=== PATIENT | male | born 1945 | race Caucasian/White ===

== ENCOUNTER → 2017-02-20 | Outpatient (CLI) | payer BC ==
[~2017-02-20] MED LIST: ASPIRIN PO; CHOL2000 PO; CLON0.5T3 PO; ESCI10TA17 PO; FLUT0.15; IBUP-1050 PO; MULT-892 PO; MULTTAB27 PO; PANC6000 PO; POTA10CA28 PO; PRLSR20 PO; SIME80CH PO; SUPER B COMPLEX PO; TRAM37.52 PO; TRIA0.5O TOP; imodium PO
[2017-02-20 11:11] LABS: BASO % 0.2 %; BASO ABS # 0.01 K/uL (0-0.2); COMPLETE YES; EOS % 1.6 %; HEMATOCRIT 36.6 % (42-52); IG% 0.2 %; LYMPH % 25.1 %; LYMPH ABS # 1.38 K/uL (1.2-3.4); MEAN CELL VOLUME 83.4 fL (80-100); MEAN CORPUSCULAR HEMOGLOBIN 28.5 pg (25-34); MEAN CORPUSCULAR HGB CONC 34.2 g/dl (32-36); MONO % 8.2 %; NEUT % 64.7 %; PLATELET COUNT 190 K/uL (130-400); RED BLOOD COUNT 4.39 M/uL (4.7-6.1); WHITE BLOOD COUNT 5.49 K/uL (4.8-10.8)
[2017-02-20 11:32] LABS: ESTIMATED AVERAGE GLUCOSE 114 mg/dl; HA1C FLAG Normal (Normal)
[2017-02-20 11:52] LABS: ALT/SGPT 79 U/L (12-78); AST/SGOT 54 U/L (15-37); BLOOD UREA NITROGEN 16 mg/dl (7-18); BUN/CREATININE RATIO 20.2 (10-20); CALCIUM 9.2 mg/dl (8.5-10.1); CARBON DIOXIDE 29 mmol/L (21-32); CHLORIDE 107 mmol/L (98-107); CREATININE 0.79 mg/dl (0.60-1.40); GLUCOSE 104 mg/dl (70-99); POTASSIUM 4.2 mmol/L (3.5-5.1); SODIUM 142 mmol/L (136-145)
[2017-02-20 11:55] LABS: ALB/GLOB RATIO 1.1 (0.9-2); ALKALINE PHOSPHATASE 305 U/L (45-117)
[2017-02-20 12:04] LABS: CHOLESTEROL/HDL RATIO 3.6; PHOSPHORUS 3.4 mg/dl (2.5-4.9); THYROID STIMULATING HORMONE 3.67 uIu/ml (0.300-4.500); URIC ACID 5.7 mg/dl (2.6-7.2)
[2017-02-23 11:43] LABS: C-REACTIVE PROT HIGHSEN 1.9 MG/L
--- NOTE | 2017-02-24 11:32 | CODING QUERY MEDICAL NECESSITY ---
SUPPORTING DIAGNOSIS NEEDED A supporting diagnosis is required for the test/procedure performed on this patient in order for us to be reimbursed by the patient's insurance. Please provide a supporting diagnosis for the following test/procedure listed below next to the test name along with your signature. *If there is no additional diagnosis for this patient that would support the following test/procedure please document that below next to the test/procedure. Test(s)/Procedure(s) that require a supporting diagnosis: * VITAMIN D 25-HYDROXY DIAGNOSIS: * VITAMIN B-12 LEVEL DIAGNOSIS: * C-REACTIVE PROTEIN DIAGNOSIS: * DOS: 02/20/17 Provider Signature: Date: Thank you Sara Scherer Health Information Management Once completed, please kindly fax back to [phone] For questions please call [phone]
== END | disposition home or self-care (01) ==
LOC: C.LABBC 08:24
PROVIDERS: ATTEND Internal Medicine Hematology & Oncology
DX: C25.2 Malignant neoplasm of tail of pancreas (principal); R73.09 Other abnormal glucose

== ENCOUNTER → 2017-03-05 | Outpatient (CLI) | payer BC ==
[~2017-03-05] MED LIST changes: +OPTIRAY 320 IV PRN
--- NOTE | 2017-03-05 16:08 | DIAGNOSTIC IMAGING REPORT ---
CHEST CT WITH CONTRAST CT DOSE: HISTORY: PANCREATIC CA TECHNIQUE: Multiaxial CT images of the chest were performed following the intravenous administration of contrast. COMPARISON: 07/14/2016 FINDINGS: Minimal scattered micronodularity is stable. No evidence for new, interval or progressive process. Hilar and mediastinal regions show no significant adenopathy. Lungs are considered clear. No focal infiltrate. Postoperative changes upper abdomen within the limitations of the study appears stable. IMPRESSION: Stable CT of the chest. No change from the prior exam. No acute process. Electronically signed by: Beto Haji M.D. 03/05/2017 4:05 PM Dictated Date/Time: 03/05/2017 4:02 PM
--- NOTE | 2017-03-05 17:07 | DIAGNOSTIC IMAGING REPORT ---
CT OF THE ABDOMEN AND PELVIS WITH CONTRAST CLINICAL HISTORY: Pancreatic cancer. COMPARISON STUDY: CT of the abdomen and pelvis July 14, 2016 and PET/CT July 23, 2016. TECHNIQUE: Following IV administration of 92 mL of Optiray-320, axial images of the abdomen and pelvis were obtained from the lung bases to the proximal femurs. Images were reviewed in the axial, sagittal, and coronal planes. IV contrast was administered without complication. Oral contrast was administered. CT DOSE: 596.85 mGy.cm FINDINGS: The chest will be reported separately. A 5 mm subpleural nodular density within the medial basilar segment of the left lower lobe is noted image 78 of 466. This is new since prior exam but likely reflects atelectasis. There is pneumobilia. There are stable postsurgical findings consistent with a Whipple procedure. A biliary stent is in place. No hepatic lesions are present. There are several splenules. The adrenal glands and right kidney are normal. Left renal calculi measure up to 5 mm. Mildly enlarged peripancreatic lymph nodes are unchanged. A 1.9 x 1.4 cm peripancreatic node shown image 173 is unchanged. There is no ascites. There is no evidence for bowel obstruction. No suspicious osseous lesions are present. The subcutaneous nodule of the right flank shown on prior exam is no longer visualized. The main, left and right portal veins are patent. IMPRESSION: 1. No convincing evidence of recurrent malignancy within the abdomen or pelvis. 2. No significant change in mildly enlarged peripancreatic lymph nodes since prior exam. These nodes were not FDG avid on prior PET/CT and are likely but should be assessed on subsequent exam. 3. 5 mm subpleural nodular density within the left lower lobe which likely reflects atelectasis but can be assessed on subsequent exam. Electronically signed by: Jaxon Arguello M.D. 03/05/2017 5:05 PM Dictated Date/Time: 03/05/2017 4:08 PM
== END | disposition home or self-care (01) ==
LOC: C.CTS 15:10
PROVIDERS: ATTEND Internal Medicine Hematology & Oncology
DX: C25.2 Malignant neoplasm of tail of pancreas (principal)

== ENCOUNTER → 2017-05-22 | Outpatient (CLI) | payer BC ==
[~2017-05-22] MED LIST changes: -OPTIRAY 320 IV PRN
[2017-05-25 11:21] LABS: 18KDIGG BAND NONREACTIVE (NONREACTIVE); 23KDIGG BAND NONREACTIVE (NONREACTIVE); 23KDIGM BAND NONREACTIVE (NONREACTIVE); 28KDIGG BAND NONREACTIVE (NONREACTIVE); 30KDIGG BAND NONREACTIVE (NONREACTIVE); 39KDIGG BAND NONREACTIVE (NONREACTIVE); 39KDIGM BAND NONREACTIVE (NONREACTIVE); 41KDIGG BAND REACTIVE (NONREACTIVE); 41KDIGM BAND NONREACTIVE (NONREACTIVE); 45KDIGG BAND REACTIVE (NONREACTIVE); 58KDIGG BAND NONREACTIVE (NONREACTIVE); 66KDIGG BAND NONREACTIVE (NONREACTIVE); 93KDIGG BAND NONREACTIVE (NONREACTIVE)
--- NOTE | 2017-06-10 12:46 | CODING QUERY MEDICAL NECESSITY ---
SUPPORTING DIAGNOSIS NEEDED A supporting diagnosis is required for the test/procedure performed on this patient in order for us to be reimbursed by the patient's insurance. Please provide a supporting diagnosis for the following test/procedure listed below next to the test name along with your signature. *If there is no additional diagnosis for this patient that would support the following test/procedure please document that below next to the test/procedure. Test(s)/Procedure(s) that require a supporting diagnosis: * VITAMIN D, 25-HYDROXY DIAGNOSIS: Provider Signature: Date: Thank you Marci Meza [facility] Information Management Once completed, please kindly fax back to [phone] For questions please call [phone]
== END | disposition home or self-care (01) ==
LOC: C.LAB 11:41
PROVIDERS: ATTEND Family Medicine
DX: B97.89 Other viral agents as the cause of diseases classified elsewhere (principal); C25.2 Malignant neoplasm of tail of pancreas; E55.9 Vitamin D deficiency, unspecified

== ENCOUNTER → 2017-06-15 | Outpatient (CLI) | payer BC ==
--- NOTE | 2017-06-15 12:01 | DIAGNOSTIC IMAGING REPORT ---
PET/CT SKULL-THIGH HISTORY: Pancreatic carcinoma PANCREATIC CANER TECHNIQUE: PET/CT was performed from the base of the skull through the pelvis following the intravenous administration of 13.9 mCi of F18-FDG. Non-contrast CT imaging was performed over the same range without breath-hold for attenuation correction of PET images and anatomic correlation, but not for primary interpretation as it is not of standard diagnostic quality. CT DOSE: 342.67 mGycm COMPARISON: 07/23/2016 FINDINGS: HEAD AND NECK: There is no FDG-avid disease or significant lymphadenopathy in the imaged portions of the head and the neck. CHEST: There is no FDG-avid disease in the chest. There is no axillary, mediastinal, or hilar lymphadenopathy. There is no pleural or pericardial effusion. There is no air-space disease or suspicious lung nodule. ABDOMEN/PELVIS: Postoperative changes consistent with prior Whipple procedure is again noted. These changes have remains stable. There are no new or interval findings within this operative field. Nephrocalcinosis unchanged. Interval resolution of the subcutaneous nodule in the right flank. The abdomen is negative for pathologic FDG activity MUSCULOSKELETAL: There is no FDG-avid or destructive bone lesion. IMPRESSION: There is no definite evidence of recurrent FDG-avid disease. Stable postoperative change consistent with a prior Whipple procedure. No abnormal FDG activity is appreciated. Interval resolution of the 2 cm subcutaneous nodule previously described within the right flank. The above report was generated using voice recognition software. It may contain grammatical, syntax or spelling errors. Electronically signed by: Beto Haji M.D. 06/15/2017 12:00 PM Dictated Date/Time: 06/15/2017 11:53 AM
== END | disposition home or self-care (01) ==
LOC: C.PET 08:57
PROVIDERS: ATTEND Internal Medicine Hematology & Oncology
DX: C25.9 Malignant neoplasm of pancreas, unspecified (principal)

== ENCOUNTER → 2017-06-25 | Outpatient (CLI) | payer BC ==
[2017-06-25 17:04] LABS: BASO % 0.1 %; BASO ABS # 0.01 K/uL (0-0.2); COMPLETE YES; EOS % 0.7 %; HEMATOCRIT 38.6 % (42-52); IG% 0.1 %; LYMPH % 15.7 %; LYMPH ABS # 1.13 K/uL (1.2-3.4); MEAN CELL VOLUME 85.2 fL (80-100); MEAN CORPUSCULAR HEMOGLOBIN 27.6 pg (25-34); MEAN CORPUSCULAR HGB CONC 32.4 g/dl (32-36); MEAN PLATELET VOLUME 9.4 fL (7.4-10.4); MONO % 9.8 %; NEUT % 73.6 %; PLATELET COUNT 194 K/uL (130-400); RED BLOOD COUNT 4.53 M/uL (4.7-6.1); WHITE BLOOD COUNT 7.21 K/uL (4.8-10.8)
[2017-06-25 17:26] LABS: ALT/SGPT 41 U/L (12-78); AST/SGOT 20 U/L (15-37); BLOOD UREA NITROGEN 13 mg/dl (7-18); CALCIUM 9.2 mg/dl (8.5-10.1); CARBON DIOXIDE 28 mmol/L (21-32); CHLORIDE 103 mmol/L (98-107); CREATININE 0.98 mg/dl (0.60-1.40); GLUCOSE 154 mg/dl (70-99); POTASSIUM 3.9 mmol/L (3.5-5.1); SODIUM 137 mmol/L (136-145)
[2017-06-25 17:28] LABS: ALB/GLOB RATIO 1.2 (0.9-2); ALKALINE PHOSPHATASE 182 U/L (45-117)
== END | disposition home or self-care (01) ==
LOC: C.LABBC 13:46
PROVIDERS: ATTEND Internal Medicine Hematology & Oncology
DX: C25.2 Malignant neoplasm of tail of pancreas (principal)

== ENCOUNTER → 2017-07-17 | Outpatient (CLI) | payer BC ==
[2017-07-17 10:54] LABS: BASO % 0.2 %; BASO ABS # 0.01 K/uL (0-0.2); COMPLETE YES; EOS % 1.8 %; HEMATOCRIT 37.9 % (42-52); IG% 0.2 %; LYMPH % 21.2 %; LYMPH ABS # 1.38 K/uL (1.2-3.4); MEAN CELL VOLUME 84.4 fL (80-100); MEAN CORPUSCULAR HEMOGLOBIN 27.6 pg (25-34); MEAN CORPUSCULAR HGB CONC 32.7 g/dl (32-36); MEAN PLATELET VOLUME 9.3 fL (7.4-10.4); MONO % 10.9 %; NEUT % 65.7 %; PLATELET COUNT 183 K/uL (130-400); RED BLOOD COUNT 4.49 M/uL (4.7-6.1)
[2017-07-17 11:39] LABS: ALT/SGPT 50 U/L (12-78); BLOOD UREA NITROGEN 18 mg/dl (7-18); BUN/CREATININE RATIO 22.4 (10-20); CALCIUM 9.2 mg/dl (8.5-10.1); CARBON DIOXIDE 28 mmol/L (21-32); CHLORIDE 105 mmol/L (98-107); CHOLESTEROL 155 mg/dl (0-200); CREATININE 0.79 mg/dl (0.60-1.40); GLUCOSE 111 mg/dl (70-99); POTASSIUM 4.2 mmol/L (3.5-5.1); SODIUM 138 mmol/L (136-145); TRIGLYCERIDES 82 mg/dl (0-150); URIC ACID 5.4 mg/dl (2.6-7.2); VERY LOW DENSITY LIPOPROT CALC 16 mg/dl
[2017-07-17 11:48] LABS: ALB/GLOB RATIO 1.1 (0.9-2); ALKALINE PHOSPHATASE 213 U/L (45-117); AST/SGOT 22 U/L (15-37); HDL CHOLESTEROL 52 mg/dl; LDL CHOLESTEROL CALCULATED 87 mg/dl; TOTAL IRON BINDING CAPACITY 371 mcg/dl (250-450)
[2017-07-17 11:58] LABS: ESTIMATED AVERAGE GLUCOSE 114 mg/dl; HA1C FLAG Normal (Normal)
[2017-07-23 09:51] LABS: 18KDIGG BAND NONREACTIVE (NONREACTIVE); 23KDIGG BAND NONREACTIVE (NONREACTIVE); 23KDIGM BAND NONREACTIVE (NONREACTIVE); 28KDIGG BAND NONREACTIVE (NONREACTIVE); 30KDIGG BAND NONREACTIVE (NONREACTIVE); 39KDIGG BAND NONREACTIVE (NONREACTIVE); 39KDIGM BAND NONREACTIVE (NONREACTIVE); 41KDIGG BAND REACTIVE (NONREACTIVE); 41KDIGM BAND NONREACTIVE (NONREACTIVE); 45KDIGG BAND REACTIVE (NONREACTIVE); 58KDIGG BAND REACTIVE (NONREACTIVE); 66KDIGG BAND NONREACTIVE (NONREACTIVE); 93KDIGG BAND NONREACTIVE (NONREACTIVE)
== END | disposition home or self-care (01) ==
LOC: C.LABBC 08:55
PROVIDERS: ATTEND Family Medicine
DX: R73.09 Other abnormal glucose (principal); E55.9 Vitamin D deficiency, unspecified; D51.9 Vitamin B12 deficiency anemia, unspecified; E78.9 Disorder of lipoprotein metabolism, unspecified; R53.83 Other fatigue

== ENCOUNTER → 2017-09-17 | Outpatient (CLI) | payer BC ==
[~2017-09-17] MED LIST changes: +OPTIRAY 320 IV PRN
--- NOTE | 2017-09-17 16:27 | DIAGNOSTIC IMAGING REPORT ---
CT OF THE CHEST WITH IV CONTRAST CLINICAL HISTORY: PANCREATIC CA COMPARISON STUDY: 03/05/2017 TECHNIQUE: Following the IV administration of 114 mL of Optiray-320, CT of the thorax was performed from the thoracic inlet to the lung bases. Images are reviewed in the axial, sagittal, and coronal planes. IV contrast was administered without complication. A dose lowering technique was utilized adhering to the principles of ALARA. CT DOSE: FINDINGS: Thyroid: Imaged portions of the thyroid gland are normal in appearance. Thoracic aorta: The ascending thoracic aorta measures 38 mm. Pulmonary vasculature: The pulmonary trunk is normal in caliber. There are no central filling defects identified to suggest pulmonary embolus. Note that this examination was not protocoled for the evaluation of pulmonary emboli. HEART: There are coronary artery calcifications. There is no significant pericardial fluid. There is a right-sided A-Port catheter. Lungs and pleural spaces: There are no pleural effusions. There is no focal pulmonary consolidation. There is mild dependent atelectasis. There is a stable 3 mm perifissural left upper lobe pulmonary nodule. There is a stable perifissural 2.5 mm left upper lobe pulmonary nodule. There is a new 12 mm pulmonary nodule the left medial lung base as visualized in image #245/326. There is a 6 mm pleural-based left lower lobe point nodule as visualized on image #252/326. This appears 1 mm larger. Mediastinum: There is no mediastinal lymphadenopathy. Sharon: Clear. Axilla: Clear. Upper abdomen: The gallbladder surgically absent. There is pneumobilia. Skeletal structures: There are no lytic or blastic osseous lesions. IMPRESSION: 1. New indeterminate 12 mm left lower lobe pulmonary nodule. 2. 1 mm increase in the size of an indeterminate 6 mm left lower lobe pulmonary nodule. Electronically signed by: Selvin Nj M.D. 09/17/2017 4:25 PM Dictated Date/Time: 09/17/2017 4:15 PM
--- NOTE | 2017-09-17 16:58 | DIAGNOSTIC IMAGING REPORT ---
ABD/PELVIS IV AND ORAL CONT HISTORY: 72 years-old Male follow-up study in a patient with pancreatic carcinoma. Prior Whipple procedure. COMPARISON: CT 03/05/2017, PET CT 06/15/2017 TECHNIQUE: Multiple axial CT images of the abdomen and pelvis were obtained following the intravenous administration of 114 mL Optiray 320. Oral contrast also administered. A dose lowering technique was used consistent with the principals of HECTOR. FINDINGS: Solid pleural-based pulmonary nodule of the basal left lower lobe measures up to 8 mm on image 34 of series 7. 12 mm pulmonary nodule on image 25 series 7 of the left lower lobe. 6 mm left lower lobe pulmonary nodule seen on image 5 of series 7. No pneumoperitoneum identified. Imaged inferior cardiac chambers are mildly enlarged with trace pericardial effusion. Coronary arterial calcifications are noted. Moderate intrahepatic biliary ductal dilation with pneumobilia of the left hepatic lobe appears unchanged. No hepatic mass lesions identified. Postsurgical changes from prior Whipple procedure are noted with biliary stent in place. Decreased size of peripancreatic adenopathy with 1.8 x 0.7 cm lymph node on image 127 series 7 previously measuring 2.0 x 1.1 cm. 1.7 x 1.3 cm peripancreatic lymph node on image 143 series 7 recent measured 2.0 x 1.4 cm on study 03/05/2017. These also appear slightly decreased from prior PET/CT. No new adenopathy identified. Moderate atherosclerosis of the abdominal aorta. Spleen, remaining pancreatic parenchyma and adrenal glands are unremarkable. 7 mm nonobstructing calculus of the interpolar left kidney is noted with 7 mm calculus of the inferior pole left kidney also present. 2 mm calculus of the superior pole left kidney. No ureteral calculi or hydronephrosis. Bladder is partially collapsed. Prostate mildly enlarged. No bowel obstruction or pneumatosis. Large bowel is within normal limits. No ascites identified. Soft tissues are unremarkable. Bones are mildly demineralized. No suspicious lytic or blastic bony lesions identified. Multilevel degenerative changes of the spine. IMPRESSION: 1. No evidence of recurrent malignancy within the abdomen or pelvis. 2. Mildly decreased size of peripancreatic lymph nodes as above. 3. Suspicious appearing pulmonary nodules of the left lower lobe measuring up to [address] chest of same day for further details. 4. Additional findings as above. The above report was generated using voice recognition software. It may contain grammatical, syntax or spelling errors. Electronically signed by: Jimmy Yadav M.D. 09/17/2017 4:57 PM Dictated Date/Time: 09/17/2017 4:47 PM
== END | disposition home or self-care (01) ==
LOC: C.CTS 15:10
PROVIDERS: ATTEND Internal Medicine Hematology & Oncology
DX: C25.2 Malignant neoplasm of tail of pancreas (principal); R91.1 Solitary pulmonary nodule; R91.8 Other nonspecific abnormal finding of lung field

== ENCOUNTER → 2017-12-18 | Outpatient (CLI) | payer BC ==
--- NOTE | 2017-12-18 10:31 | DIAGNOSTIC IMAGING REPORT ---
ABD/PELVIS IV AND ORAL CONT CT DOSE: HISTORY: Pancreatic carcinoma PANCREATIC CA TECHNIQUE: Multiaxial CT images of the abdomen and pelvis were performed following the use of intravenous and oral contrast. A dose lowering technique was utilized adhering to the principles of ALARA. COMPARISON STUDY: 09/17/2017 FINDINGS: Parenchymal nodules medial aspect left base somewhat increased in dimension. The posterior pleural-based nodule has increased to 11 mm from 8 mm in terms of maximum dimension. The anterior pleural-based nodule has increased to 15 mm from 11 mm. Density characteristics of the liver and spleen remain unremarkable. Operative changes of prior Whipple procedure and stent placement are similar. An anterior. Note is stable at 1.4 cm. Several small perirectal nodes present described are stable. At this time there does not appear to be a significant degree of peripancreatic adenopathy. Kidneys enhance uniformly. There are several nonobstructing left renal calcifications considered unchanged. Bowel pattern is nonobstructive. pelvis shows bladder is midline. There is no significant pelvic or inguinal adenopathy. IMPRESSION: 1. Slightly progressive left basilar pulmonary nodularity compared to the prior study. 2. The 2 previously described nodules are mildly increased in size. 3. No new or additional basilar parenchymal nodules. 4. Stable to slightly improved evaluation of the abdomen and pelvis. 5. Stable to slightly improved upper abdominal and pelvic adenopathy with no significant abnormality of the pelvic region or inguinal region structures. The above report was generated using voice recognition software. It may contain grammatical, syntax or spelling errors. Electronically signed by: Beto Haji M.D. 12/18/2017 10:29 AM Dictated Date/Time: 12/18/2017 10:21 AM
--- NOTE | 2017-12-18 10:34 | DIAGNOSTIC IMAGING REPORT ---
CT OF THE CHEST WITH IV CONTRAST CLINICAL HISTORY: Pancreatic cancer. COMPARISON STUDY: Chest CT September 17, 2017. TECHNIQUE: Following IV administration of 120 mL of Optiray-320, helical axial images of the chest were obtained. Sagittal and coronal reconstructions were viewed as well as maximal intensity projections on an independent 3-D workstation. A dose lowering technique was utilized adhering to the principles of ALARA. CT DOSE: 645.90 mGy.cm FINDINGS: No enlarged axillary, mediastinal or hilar lymph nodes are present. Mild dilatation of the ascending aorta, measuring 4 cm is unchanged. There is no evidence for thoracic aortic dissection. There is extensive coronary artery calcification. The size of the heart is normal. There is no pericardial effusion. Central airways are patent. A 1.6 cm left lower lobe nodule shown image 237 of 326 has mildly increased in size since CT of September 17, 2017 when measured 1.2 cm. An adjacent 1.1 cm left lower lobe nodule previously measured 0.6 cm. A new 1 cm left lower lobe nodule is noted on image 185. His could reflect a pulmonary nodule or abnormal bronchial lymph node. Additional tiny subpleural nodules are unchanged and likely benign. The central airways are patent. There is no consolidation to suggest pneumonia. There is no pneumothorax or pleural effusion. No suspicious osseous lesions are present. The abdomen and pelvis will be reported separately. Pneumobilia is again noted. IMPRESSION: Mild increase in size of two irregular left lower lobe pulmonary nodules since CT of September 17, 2017 with interval development of an additional 1 cm left lower lobe nodule. The findings are highly suggestive of metastatic disease. Electronically signed by: Jaxon Arguello M.D. 12/18/2017 10:32 AM Dictated Date/Time: 12/18/2017 10:21 AM
== END | disposition home or self-care (01) ==
LOC: C.CTS 09:36
PROVIDERS: ATTEND Internal Medicine Hematology & Oncology
DX: C25.2 Malignant neoplasm of tail of pancreas (principal)

== ENCOUNTER → 2018-01-06 | Outpatient (CLI) | payer BC ==
[~2018-01-06] MED LIST changes: +ACET1CAP16 PO; +CYM/30 PO; +DXM/4 PO; +FINA5TAB PO; +LIDO1CRE16 TOP; +MILK250C PO; -OPTIRAY 320 IV PRN; +TAMS0.4C38 PO
--- NOTE | 2018-01-06 10:11 | DIAGNOSTIC IMAGING REPORT ---
KUB HISTORY: NEPHROLITHIASIS COMPARISON: Abdomen and pelvis CT 12/18/2017. KUB 10/30/2016. FINDINGS: The bowel gas pattern is unremarkable. There are no dilated loops of small bowel to suggest an obstruction. Surgical clips and suture material are again noted within the upper abdomen. Common bile duct stent remains unchanged in position. No right renal calculi. No ureteral calculi. Stable 8 mm stone within the lower pole of the left kidney. No pneumoperitoneum or pneumatosis. IMPRESSION: 1. Stable 8 mm stone within the left kidney. 2. No ureteral calculi identified. Electronically signed by: Tomer Davis M.D. 01/06/2018 10:09 AM Dictated Date/Time: 01/06/2018 10:05 AM
== END | disposition home or self-care (01) ==
LOC: C.RADBC 09:17
PROVIDERS: ATTEND Urology
DX: C67.9 Malignant neoplasm of bladder, unspecified (principal); N20.0 Calculus of kidney; N40.1 Benign prostatic hyperplasia with lower urinary tract symptoms; R31.0 Gross hematuria

== ENCOUNTER → 2018-02-01 | Outpatient (CLI) | payer BC ==
[~2018-02-01] MED LIST changes: -ACET1CAP16 PO; -CYM/30 PO; -DXM/4 PO; -FINA5TAB PO; -LIDO1CRE16 TOP; -MILK250C PO; -TAMS0.4C38 PO
--- NOTE | 2018-02-01 11:53 | DIAGNOSTIC IMAGING REPORT ---
KUB CLINICAL HISTORY: N20.0 nephrocalcinosis COMPARISON STUDY: 01/06/2018 FINDINGS: 3 mm calculus medial aspect left kidney unchanged. No additional calcifications. No significant paravertebral calcification. Biliary ductal stent is noted. Bowel is nonobstructive. IMPRESSION: Unchanging 8 mm calcification left kidney. The above report was generated using voice recognition software. It may contain grammatical, syntax or spelling errors. Electronically signed by: Beto Haji M.D. 02/01/2018 11:51 AM Dictated Date/Time: 02/01/2018 11:50 AM
== END | disposition home or self-care (01) ==
LOC: C.RADBC 10:46
PROVIDERS: ATTEND Urology
DX: N20.0 Calculus of kidney (principal)

== ENCOUNTER → 2018-02-04 | Outpatient (CLI) | payer BC ==
[~2018-02-04] MED LIST changes: +ACET1CAP16 PO; +CYM/30 PO; +DXM/4 PO; +FINA5TAB PO; +GADAVIST IV PRN; +LIDO1CRE16 TOP; +MILK250C PO; +TAMS0.4C38 PO
--- NOTE | 2018-02-04 09:54 | DIAGNOSTIC IMAGING REPORT ---
MRI OF THE BRAIN WITHOUT AND WITH IV CONTRAST CLINICAL HISTORY: Metastatic pancreatic cancer. Vision loss. COMPARISON STUDY: No previous studies for comparison. TECHNIQUE: Utilizing a 1.5 Cathleen magnet and dedicated coil, multiplanar, multiecho imaging of the brain was performed pre and postcontrast administration. IV administration of 7.5 mL of Gadavist contrast was uneventful. FINDINGS: No foci of restricted diffusion are noted. Ventricular system is normal. The basilar cisterns are patent. There are no extra-axial collections. There is an enhancing 1.5 x 1.3 cm lesion within the right occipital lobe with moderate associated vasogenic edema. This is likely intra-axial in location although this abuts the right tentorium. No additional intracranial masses are identified. Additional white matter T2 hyperintense foci suggest small vessel disease. Note is made of a 2.3 cm focus of marrow replacement within the anterior left parietal bone shown best on sagittal T1 sequence image 15 of . Orbits are unremarkable. Mastoid air cells and sinuses are clear. IMPRESSION: 1. 1.5 x 1.3 cm enhancing right occipital lobe lesion, likely intra-axial in location with moderate associated vasogenic edema which would account for the patient's symptoms. An extra-axial lesion such as meningioma could appear similar although is considered less likely. This is suggestive of metastatic disease given the clinical history although this pattern of spread is atypical for pancreatic cancer. A primary brain malignancy could appear similar. 2. 2.3 cm focus of marrow replacement within the anterior left parietal bone which may reflect a skeletal metastasis. Electronically signed by: Jaxon Arguello M.D. 02/04/2018 9:52 AM Dictated Date/Time: 02/04/2018 9:41 AM
== END | disposition home or self-care (01) ==
LOC: C.MRIBC 08:19
PROVIDERS: ATTEND Family Medicine
DX: C25.9 Malignant neoplasm of pancreas, unspecified (principal); H54.3 Unqualified visual loss, both eyes; R51 Headache; R90.89 Other abnormal findings on diagnostic imaging of central nervous system; R93.7 Abnormal findings on diagnostic imaging of other parts of musculoskeletal system